=== PATIENT | female | born 1940 | race African-American/Black ===

== ENCOUNTER 2019-10-26 14:12 | Emergency (ER) | payer OTHER, MEDICAID ==
[~2019-10-26] VITALS: Ht 160 cm; Wt 97.5 kg
--- NOTE | 2019-10-26 14:24 | NUR ---
Pt placed in bed 3 by MELLISAS
[2019-10-26 14:25] VITALS: BP_SYST 167
--- NOTE | 2019-10-26 14:27 | NUR ---
Patient arrived via BLS ambulance from [facility]. Patient sent for evaluation of patient after she has been experiencing increased agitation and aggressive behavior. Patient experiencing auditory hallucinations. Once medically cleared, patient is to go to [facility]. Spoke with Radha from [facility]. Information sent via fax.
--- NOTE | 2019-10-26 14:29 | NUR ---
ER at bedside examining patient.
--- NOTE | 2019-10-26 15:14 | NUR ---
Lab at bedside for exam.
--- NOTE | 2019-10-26 15:20 | NUR ---
Patient ambulatory to restroom to collect urine sample.
[2019-10-26 15:41] LABS: BASOPHILS % (AUTO) 0.6 % (0.0-2.0); EOSINOPHILS # (AUTO) 0.1 K/uL (0.0-0.4); EOSINOPHILS % (AUTO) 1.3 % (0.0-4.0); HEMOGLOBIN 12.4 g/dL (12.0-16.0); LYMPHOCYTES # (AUTO) 1.9 K/uL (1.0-5.5); LYMPHOCYTES % (AUTO) 29.4 % (20.5-51.5); MEAN CORPUSCULAR HEMOGLOBIN 31 pg (27-31); MEAN CORPUSCULAR HGB CONC 34 % (32-36); MEAN CORPUSCULAR VOLUME 91 fL (79.0-98.0); MONOCYTES # (AUTO) 0.5 K/uL (0.0-1.0); MONOCYTES % (AUTO) 7.5 % (1.7-9.3); NEUTROPHILS # (AUTO) 3.9 K/uL (1.8-7.7); NEUTROPHILS % (AUTO) 61.2 % (40.0-70.0); PLATELET COUNT (AUTO) 192 K/uL (130-430); RED BLOOD CELL COUNT(AUTO) 4.06 MIL/uL (4.2-6.2); RED CELL DISTRIBUTION WIDTH 12.5 % (9.0-15.0); WHITE BLOOD COUNT (AUTO) 6.4 K/uL (4.8-10.8)
[2019-10-26 15:50] LABS: ANION GAP 4 (5-15); CALCIUM 8.4 mg/dL (8.4-11.0); CHLORIDE 102 mmol/L (98-107); CREATININE 1.01 mg/dL (0.55-1.30); GLUCOSE 138 mg/dL (70-99); POTASSIUM 4.2 mmol/L (3.5-5.1); SODIUM SERUM 137 mmol/L (136-145); UREA NITROGEN, BLOOD 22 mg/dL (8-21)
[2019-10-26 15:55] LABS: ALANINE AMINOTRANSFERASE 21 U/L (12-78); ALBUMIN 3.1 g/dL (3.4-4.8); ASPARTATE AMINOTRANSFERASE 18 U/L (10-37); TOTAL BILIRUBIN 0.2 mg/dL (0.0-1.0)
[2019-10-26 16:10] LABS: ACETAMINOPHEN < 1 ug/mL (1-30); ALCOHOL, BLOOD < 3 mg/dL (<10)
[2019-10-26 16:29] LABS: CHOLESTEROL 187 mg/dL (<200); HDL CHOLESTEROL 68 mg/dL (>55); LDL CHOLESTEROL 102 mg/dL (<100); TRIGLYCERIDES 58 mg/dL (30-150)
--- NOTE | 2019-10-26 17:03 | NUR ---
Patient refusing to have a straight catheter for obtaining urine specimen. Patient given water to obtain specimen.
--- NOTE | 2019-10-26 17:14 | NUR ---
Patient able to provide urine specimen. Sent to lab for resulting. aware.
[2019-10-26 17:19] LABS: BILIRUBIN,URINE NEGATIVE (NEGATIVE); BLOOD, URINE NEGATIVE (NEGATIVE); CLARITY/URINE CLEAR (CLEAR); COLOR,URINE YELLOW (YELLOW); GLUCOSE,URINE NEGATIVE (NEGATIVE); KETONES,URINE NEGATIVE (NEGATIVE); NITRITE, URINE NEGATIVE (NEGATIVE); PH,URINE 6.5 (5.0-8.0); PROTEIN URINE TRACE (NEGATIVE); UROBILINOGEN,URINE 0.2 (0.2-1.0)
[2019-10-26 17:29] LABS: LEUKOCYTE ESTERASE ,URINE TRACE (NEGATIVE)
[2019-10-26 17:30] LABS: BACTERIA,URINE FEW /HPF (None Seen); MUCUS,URINE None Seen /LPF (None Seen); RBC,URINE 0-3 /HPF (0-3)
[2019-10-26 17:34] LABS: BARBITURATE, URINE NEGATIVE (NEG <=200); BENZODIAZEPINE, URINE POSITIVE (NEG <=150); CANNABINOID, URINE NEGATIVE (NEG <=50); COCAINE, URINE NEGATIVE (NEG <=150); METHAMPHETAMINES SCREEN,URINE NEGATIVE (NEG <=500); OPIATE, URINE NEGATIVE (NEG <=100); PHENCYCLIDINE SCREEN,URINE NEGATIVE (NEG <=25); UR TRICYCLIC ANTIDEPRESSANTS NEGATIVE (NEG <=300); URINE AMPHETAMINE NEGATIVE (NEG <=500); URINE METHADONE NEGATIVE (NEG <=200); URINE OXYCODONE SCREEN NEGATIVE (NEG <=100); URINE PROPOXYPHENE SCREEN NEGATIVE (NEG <=300)
--- NOTE | 2019-10-26 17:45 | NUR ---
Patient pending transfer to [facility]. [facility] ETA of 1809.
--- NOTE | 2019-10-26 18:17 | NUR ---
Patient to be transferred to [facility]. Is being transferred due to higher level of care. Receiving facility has accepting physician and available space. ER physician has signed transfer form. Patient or responsible libertarian has agreed to transfer and signed form. Patient belongings inventoried and will be sent with patient. Copy of nursing notes, lab reports, EKG, Physicians Orders and X-rays to be sent with patient. Report called to Radha at receiving facility. Receiving physician is Dr. Vo/. [facility] has been called for transfer. ETA is 1810.
[2019-10-26 18:45] VITALS: BP_SYST 151
--- NOTE | 2019-10-26 18:45 | NUR ---
Patient has left ED with EMS crew accompanied.
== END 2019-10-26 18:45 ==
LOC: SED 14:12
DX: F20.9 Schizophrenia, unspecified (principal); Z13.39 Encounter for screening examination for other mental health and behavioral disorders; Z90.710 Acquired absence of both cervix and uterus; Z88.0 Allergy status to penicillin
CPT/HCPCS: 36415; 80053; 80061; 80307; 81000; 83036; 85025; 87081; 99285; G0480; G0481; G0482